=== PATIENT | male | born 1970 ===

== ENCOUNTER 2018-11-23 11:07 | Emergency (ER) | payer OTHER ==
[2018-11-23 11:16] VITALS: BMI 25.2
[2018-11-23 11:18] VITALS: BP 115/71; PULSE 81; RESP 17; TEMP 97.8; O2SAT 98
[2018-11-23] MEDS ORDERED: Sodium Chloride 0.9% 1,000 ML IV STA (12:46)
--- NOTE | 2018-11-23 13:42 | US ---
Date of service: 11/23/2018 HISTORY: L testicular pain TECHNIQUE: Realtime sonography through the scrotum with color and doppler flow. COMPARISON: None Available. FINDINGS: Patient status post right ovary a right orchectomy due to apparent infectious process. Right testicle and epididymis accordingly are not identified. No fluid collection is identified at right hemiscrotum. LEFT TESTICLE: Measures 3.1 x 2.3 x 1.5 cm. Echotexture at the left testicle is generally within normal limits except for an area at the inferior pole where a few small cysts are encountered with dilated tubular structures closely associated. There is no internal color Doppler blood flow associated with pattern most compatible with minimal tubular ectasia of the rete testis. LEFT EPIDIDYMIS: Epididymal head measures 0.8 x 0.6 cm. Grossly unremarkable appearance with normal flow. HYDROCELE: None. VARICOCELE: None. OTHER FINDINGS: None. IMPRESSION: Unremarkable left epididymis with limited tubular ectasia of the rete testis of the left testicle identified. Prior right orchectomy.
--- NOTE | 2018-11-23 13:46 | CARD ---
APPROVED REPORT Date of service: 11/23/2018 EKG Measurement Heart [id number] ID [id number] <Conclusion> Normal sinus rhythm Minimal voltage criteria for LVH, may be normal variant Borderline ECG
--- NOTE | 2018-11-23 13:52 | CT ---
Date of service: 11/23/2018 PROCEDURE: CT HEAD WITHOUT CONTRAST. HISTORY: dizziness COMPARISON: None available. TECHNIQUE: Axial computed tomography images were obtained through the head/brain without intravenous contrast. Radiation dose: Total exam DLP = 840.64 mGy-cm. This CT exam was performed using one or more of the following dose reduction techniques: Automated exposure control, adjustment of the mA and/or kV according to patient size, and/or use of iterative reconstruction technique. FINDINGS: HEMORRHAGE: No intracranial hemorrhage. BRAIN: There is a small calcification under 1 cm size at the lateral right temporal lobe likely postinfectious or postinflammatory in origin. No acute intracranial findings. Good corticomedullary differentiation is identified. No mass effect. No suspicious extra-axial collection or parenchymal edema pattern. Posterior fossa contents are unremarkable including the brainstem. VENTRICLES: Unremarkable. No hydrocephalus. CALVARIUM: Unremarkable. PARANASAL SINUSES: Unremarkable as visualized. No significant inflammatory changes. MASTOID AIR CELLS: Unremarkable as visualized. No inflammatory changes. OTHER FINDINGS: None. IMPRESSION: Tiny postinfectious or postinflammatory calcification right temporal lobe with remaining brain parenchyma normal in appearance overall. CT or MRI are available follow-up if clinically warranted.
[2018-11-23 14:06] LABS: BASO % 0.6 % (0.0-2.0); EOS # 0.1 K/uL (0.0-0.7); EOS % 0.8 % (0.0-4.0); HEMOGLOBIN 14.1 g/dL (12.0-18.0); LYMPH # 1.4 K/uL (1.0-4.3); MEAN CELL VOLUME 93.5 fl (80.0-94.0); MEAN CORPUSCULAR HEMOGLOBIN 31.9 pg (27.0-31.0); MEAN CORPUSCULAR HGB CONC 34.2 g/dL (33.0-37.0); MEAN PLATELET VOLUME 9.6 fl (7.2-11.7); MONO # 0.5 K/uL (0.0-0.8); MONO % 7.3 % (0.0-10.0); NEUT # 5.3 K/uL (1.8-7.0); NEUT % 72.3 % (50.0-75.0); RBC 4.42 Mil/uL (4.40-5.90); RED CELL DISTRIBUTION WIDTH 13.2 % (11.5-14.5); WHITE BLOOD COUNT 7.3 K/uL (4.8-10.8)
[2018-11-23 14:22] LABS: ALB/GLOB RATIO 1.2 (1.0-2.1); ALT/SGPT 22 U/L (21-72); AST/SGOT 27 U/L (17-59); BLOOD UREA NITROGEN 17 mg/dl (9-20); GFR NON-AFRICAN AMERICAN > 60; LIPASE 176 U/L (23-300)
--- NOTE | 2018-11-23 14:37 | ED PDOC ---
HPI: Abdomen Time Seen by Provider: 11/23/18 11:51 Chief Complaint (Nursing): Abdominal Pain Chief Complaint (Provider): Abdominal Pain History Per: Patient History/Exam Limitations: no limitations Onset/Duration Of Symptoms: Days (x1.5 months ago) Current Symptoms Are (Timing): Still Present Additional Complaint(s): 48 y/o male with no significant PMHx presents to the ED for evaluation of intermittent epigastric pain associated with dizziness and left testicular num bness, onset one month and a half ago. Patient states symptoms all occur simultaneously and resolve simultaneously. Patient reports of developing the same symptoms when he was at [facility] in September 2018. Patient states he did not follow up with PMD after ED visit as he thought symptoms would resolve on its own. Otherwise, patient denies chest pain, shortness of breath, head injury, testicular trauma, diarrhea, constipation, fever, chills, dysuria and hematuria. PMD: No Provider Past Medical History Reviewed: Historical Data, Nursing Documentation, Vital Signs Vital Signs: Last Vital Signs Temp 97.8 F 11/23/18 11:17 Pulse 81 11/23/18 11:17 Resp 17 11/23/18 11:17 BP 115/71 11/23/18 11:17 Pulse Ox 98 11/23/18 11:17 - Medical History PMH: No Chronic Diseases - Surgical History Surgical History: Appendectomy - Family History Family History: States: No Known Family Hx - Immunization History Hx Tetanus Toxoid Vaccination: No Hx Influenza Vaccination: No Hx Pneumococcal Vaccination: No - Home Medications Home Medications: Ambulatory Orders Medication Instructions Recorded RX: Meclizine [Meclizine*] 25 mg PO Q8 #15 tab 10/03/18 Meclizine [Antivert] 50 mg PO Q6 PRN #12 tab 11/23/18 - Allergies Allergies/Adverse Reactions: Allergies Allergy/AdvReac Type Severity Reaction Status Date / Time No Known Allergies Allergy Verified 10/03/18 17:33 Review of Systems ROS Statement: Except As Marked, All Systems Reviewed And Found Negative Constitutional: Negative for: Fever, Chills Cardiovascular: Negative for: Chest Pain Respiratory: Negative for: Shortness of Breath Gastrointestinal: Positive for: Abdominal Pain (epigastric ). Negative for: Diarrhea, Constipation Genitourinary Male: Positive for: Other (left testicular numbness). Negative for: Dysuria, Hematuria Musculoskeletal: Negative for: Other (head injury) Neurological: Positive for: Dizziness Physical Exam - Reviewed Nursing Documentation Reviewed: Yes Vital Signs Reviewed: Yes - Physical Exam Appears: Positive for: No Acute Distress Head Exam: Positive for: ATRAUMATIC, NORMOCEPHALIC Skin: Positive for: Normal Color, Warm, Dry Eye Exam: Positive for: Normal appearance, EOMI, PERRL Neck: Positive for: Normal, Painless ROM, Supple Cardiovascular/Chest: Positive for: Regular Rate, Rhythm. Negative for: Murmur Respiratory: Positive for: Normal Breath Sounds. Negative for: Respiratory Distress Gastrointestinal/Abdominal: Positive for: Normal Exam, Soft. Negative for: Tenderness Male Genital Exam: Positive for: normal genitalia, other (Both testes descended No swelling. ). Negative for: lesions, testicular tenderness (R), testicular tenderness (L) Back: Positive for: Normal Inspection Extremity: Positive for: Normal ROM. Negative for: Deformity Neurologic/Psych: Positive for: Alert, Oriented. Negative for: Motor/Sensory Deficits - Laboratory Results Result Diagrams: 11/23/18 13:50 11/23/18 13:50 Lab Results: Total Bilirubin 0.4 mg/dl (0.2-1.3) 11/23/18 13:50 AST 27 U/L (17-59) 11/23/18 13:50 ALT 22 U/L (21-72) 11/23/18 13:50 Alkaline Phosphatase 114 U/L (38-126) 11/23/18 13:50 Total Protein 7.4 G/DL (6.3-8.2) 11/23/18 13:50 Albumin 4.0 g/dL (3.5-5.0) 11/23/18 13:50 Globulin 3.4 gm/dL (2.2-3.9) 11/23/18 13:50 Albumin/Globulin Ratio 1.2 (1.0-2.1) 11/23/18 13:50 Lipase 176 U/L (23-300) 11/23/18 13:50 - ECG O2 Sat by Pulse Oximetry: 98 (RA) Pulse Ox Interpretation: Normal Medical Decision Making Medical Decision Making: Time: 1246 Plan: -- CT Head w/o Contrast -- EKG -- CMP -- Lipase -- Troponin I -- CBC with Differentials -- CBC with Differentials -- Antivert 50 mg PO -- Sodium Chloride IV 1000 mls/hr -- Zofran Inj 4 mg IVP -- Improvement Leader -- IV Insertion -- Urinalysis -- US Testes Duplex Complete Time: 1327 US RESULTS FINDINGS: Patient status post right ovary a right orchectomy due to apparent infectious process. Right testicle and epididymis accordingly are not identified. No fluid collection is identified at right hemiscrotum. LEFT TESTICLE: Measures 3.1 x 2.3 x 1.5 cm. Echotexture at the left testicle is generally within normal limits except for an area at the inferior pole where a few small cysts are encountered with dilated tubular structures closely associated. There is no internal color Doppler blood flow associated with pattern most compatible with minimal tubular ectasia of the rete testis. LEFT EPIDIDYMIS: Epididymal head measures 0.8 x 0.6 cm. Grossly unremarkable appearance with normal flow. HYDROCELE: None. VARICOCELE: None. OTHER FINDINGS: None. IMPRESSION: Unremarkable left epididymis with limited tubular ectasia of the rete testis of the left testicle identified. Prior right orchectomy. Time: 1349 CT HEAD RESULTS FINDINGS: HEMORRHAGE: No intracranial hemorrhage. BRAIN: There is a small calcification under 1 cm size at the lateral right temporal lobe likely postinfectious or postinflammatory in origin. No acute intracranial findings. Good corticomedullary differentiation is identified. No mass effect. No suspicious extra-axial collection or parenchymal edema pattern. Posterior fossa contents are unremarkable including the brainstem. VENTRICLES: Unremarkable. No hydrocephalus. CALVARIUM: Unremarkable. PARANASAL SINUSES: Unremarkable as visualized. No significant inflammatory changes. MASTOID AIR CELLS: Unremarkable as visualized. No inflammatory changes. OTHER FINDINGS: None. IMPRESSION: Tiny postinfectious or postinflammatory calcification right temporal lobe with remaining brain parenchyma normal in appearance overall. CT or MRI are availabl e follow-up if clinically warranted. 1554 [place] #[id number] Pt informed of all results and advised to f/u with [facility]. Reports no known hx of previous brain infection. States he is feeling much better. Dizziness has resolved. Pt. is to return to ED immediately if symptoms worsen. Scribe Attestation: Documented by Manuel Batista, acting as a scribe for Nicholas Rodriguez PA-C. Provider Scribe Attestation: All medical record entries made by the Scribe were at my direction and personally dictated by me. I have reviewed the chart and agree that the record accurately reflects my personal performance of the history, physical exam, medical decision making, and the department course for this patient. I have also personally directed, reviewed, and agree with the discharge instructions and di sposition. Disposition - Clinical Impression Clinical Impression: Dizziness, Testicular pain, left - Patient ED Disposition Is Patient to be Admitted: No - Disposition Referrals: Marcus Echeverria MD [Medical Doctor] - [facility] [Outside] Disposition: Routine/Home Disposition Time: 15:46 Condition: IMPROVED Additional Instructions: FOLLOW UP WITH [facility] OR DR. ECHEVERRIA (UROLOGIST) FOR FURTHER EVALUATION RETURN TO ED IMMEDIATELY IF SYMPTOMS WORSEN [place], thank you for letting us take care of you today. Your provider was Mara Larsen MD and you were treated for SOB. The emergency medical care you received today was directed at your acute symptoms. If you were prescribed any medication, please fill it and take as directed. It may take several days for your symptoms to resolve. Return to the Emergency Department if your symptoms worsen, do not improve, or if you have any other problems. Please contact your doctor or call one of the physicians/clinics you have been referred to that are listed on the Patient Visit Information form that is included in your discharge packet. Bring any paperwork you were given at discharge with you along with any medications you are taking to your follow up visit. Our treatment cannot replace ongoing medical care by a primary care provider outside of the emergency department. Thank you for allowing the [facility] team to be part of your care today. If you had an X-Ray or CT scan: A Radiologist will review the ED reading if any change in treatment is needed we will contact you. If you had a blood, urine, or wound culture: It will take several days for the results, if any change in treatment is needed we will contact you. If you had an STI test: It will take 48 hours for the results. Please call after 1 week if you have not heard back. Prescriptions: Meclizine [Antivert] 50 mg PO Q6 PRN #12 tab PRN Reason: Dizziness Instructions: Vertigo (a Type of Dizziness) (DC) Forms: [employer] (Gabonese) Print Language: BAHRAINI
[2018-11-23 15:25] LABS: URINE BILIRUBIN NEGATIVE (NEGATIVE); URINE BLOOD NEGATIVE (NEGATIVE); URINE CLARITY CLEAR (Clear); URINE COLOR COLORLESS (YELLOW); URINE GLUCOSE (UA) NEG (NEGATIVE); URINE LEUKOCYTE ESTERASE SMALL Leu/uL (Negative); URINE PROTEIN NEGATIVE (NEGATIVE); URINE UROBILINOGEN 0.2-1.0 mg/dL (0.2-1.0)
== END 2018-11-23 16:12 | disposition home or self-care (01) ==
LOC: H.ER 11:07
DX: R10.13 Epigastric pain (principal); R42 Dizziness and giddiness; N50.812 Left testicular pain
CPT/HCPCS: 70450; 80053; 81003; 83690; 84484; 85025; 93005; 93975; 96361; 96374; 99283; J2405; J7030